=== PATIENT | female | born 1970 | race Caucasian/White ===

== ENCOUNTER 2019-07-14 09:41 | Day surgery (SDC) | payer OTHER, SELFPAY ==
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
[2019-07-14] VITALS (7 sets, daily range): BP systolic 126–149; BP diastolic 57–72; PULSE 78–87; RESP 16–18; TEMP 36.8–37; O2SAT 92–96; BMI 49.0
--- NOTE | 2019-07-14 | EMB_PTH ---
PATIENT: SHANNAN SOLIS LOC: [facility] – [place] U#:[id number] AGE/SX: 48/F ROOM: RE07/14/[address]: Dr. Jennifer Conde MD : [id number] BED: DIS: 07/14/2019 SPEC #: [id number] RECD: 07/14/19 15:50 STATUS: JODIE ADAMS #: [id number] ALLI: 07/14/19 00:[address]: Jennifer Conde DEPT: SURGICAL PATHOLOGY RECD BY: Mic Braden ENTERED: 07/15/19 08:53 SP TYPE: ENDOM BX/C GENIA DR: Dr. Isaiah Espinoza MD Tissues: Endometrium, NOS Procedures: Surgery Specimen Level IV HEADER OPERATION: Hysteroscopy, dilation and curettage PRE-OP DIAGNOSIS: Postmenopausal bleeding, stenotic cervix and thickened endometrium on US TISSUE SUBMITTED: Endometrial curettings and polyp MICROSCOPIC DIAGNOSIS Endometrium curettings and polyp, excisions: Strips of benign superficial glandular mucosa and squamous mucosa. Endometrial polyp with simple hyperplasia without atypia. AM:bharat 07/18/19 MICROSCOPIC DESCRIPTION Slides are reviewed. GROSS DESCRIPTION Received is one container labeled with the patient name and designated endometrial curettings and polyp. The specimen consists of multiple fragments of hemorrhagic soft tissue mixed with mucoid tissue that in aggregate measure 2.5 x 1.5 x 0.1 cm. Also present in the container is a piece of hansen pink polyp measuring 3.2 x 1 x 0.7 cm. The entire specimen is submitted in two cassettes as follows: 1 - hemorrhagic soft tissue. 2- Polyp. /SJ:sp 07/15/19 TC: 1 CPT: 01370
[2019-07-14 10:13] LABS: Internal QC Validated? YES +Cl - CLEAR BKGD; Pregnancy, Urine Negative Negative
[2019-07-14] MEDS: Acetaminophen 500 MG Tablet 1000 MG PO (10:35)
[2019-07-14] MEDS: Lactated Ringers 1,000 ML 70 ML IV (10:36)
[2019-07-14] MEDS: Ketorolac 30 MG/ML Syringe IV (10:36)
[2019-07-14] MEDS: Lubricating Jelly 60 GM Tube 30 GM TOPICAL (12:19)
--- NOTE | 2019-07-14 13:05 | OP.PCM_ITS ---
Report of Operation Date of Procedure: 07/14/19 Pre-Operative Diagnosis: PMB, thickened endometrium, stenotic cervix Post-Operative Diagnosis: same+ endometrial polyp Surgery/Procedure Performed:: Hysteroscopy dilation and curettage with polyp removal Description of Surgical Findings:: Normal-appearing cervix and vagina, normal-appearing endometrial cavity except for large fundal pedunculated polyp. linoleum floor installer: None Type of Anesthesia:: MAC Anesthesiologist: Breanna Trotter Special Medications: None Specimen's removed: Endometrial polyp and curettings Drains: None Estimated Blood Loss (mL): 10 Fluids Replaced: 600 Description of Procedure: The patient was taken to the OR where she was prepped and draped in dorsal lithotomy position. The weighted speculum was placed in the vagina and the anterior lip of the cervix was grasped with a single-tooth tenaculum. The cervix was dilated serially with Hegar dilators. The 5mm hysteroscope was placed into the uterine cavity and the above findings were noted. Bilateral tubal ostia were identified. A large fundal polyp was noted and was very pedunculated. The decision was made to attempt to remove it with just sharp curettage. The hysteroscope was removed. A gentle sharp curettage was done of the uterine cavity. Polyp came out and one large piece. There were scant endometrial curettings to go along with it. The hysteroscope was replaced and the polyp had been removed in its entirety and there were no other focal abnormalities. The instruments were removed from the vagina. The specimen was handed off and sent to pathology. All sponge and needle counts were correct. Vaginal sweep was performed by me. The patient was awakened and taken to the recovery room in stable condition. Hysteroscopic ins: 300cc normal saline Hysteroscopic outs:280cc Findings: Endometrial cavity: Atrophic, thin lining, large pedunculated fundal polyp Cervix: Normal Vagina: Normal Grafts/Implants Used: none - Complications none - Admit VTE Documentation VTE Present on Admission: No VTE Mechan Device Prophylaxis: SCD's VTE Pharm Prophylaxis ordered?: No Reason prophylaxis not ordered:: Treatment Not Indicated
--- NOTE | 2019-07-14 13:09 | DCINST_ITS ---
Discharge Diet: No Restrictions Discharge Activity: Return to Normal Activity, May Shower, May Take a Tub Bath - in 2 weeks. May resume sexual activity in: 1 week Call your doctor if your incision/area has: Sudden Increased Bleeding, Foul Smelling Discharge Call your doctor if you observe: Fever of 101 or Higher, Using more than one pad per hour - for 2 hrs in a row Allergies/Adverse Reactions: Allergies nitrofurantoin [From Macrobid] Allergy (Verified 07/14/19 10:17) PAINFUL WELTS Sulfa (Sulfonamide Antibiotics) Allergy (Verified 07/14/19 10:17) Hives Medications to take at Discharge Albuterol Aerosols [Ventolin Aerosols] 2.5 mg INHALATION Q6HWA.RT PRN 07/07/19 Albuterol IH (ProAir) [Proair Hfa] 1 - 2 puff INHALATION Q6H PRN PRN 07/07/19 Calcium Carb/Vitamin D3/Vit K1 [Viactiv 650 mg-12.5 Mcg Chew] 1 ea PO DAILY 07/07/19 Carbamazepine [Tegretol] 200 mg PO QHS 07/07/19 Cholecalciferol (Vitamin D3) [Vitamin D3] 6,000 unit PO DAILY 07/07/19 Enalapril/Hydrochlorothiazide [Enalapril-Hctz 5-12.5 mg Tab] 1 ea PO QHS 07/07/19 Fenofibrate [Tricor] 145 mg PO QHS 07/07/19 Inulin/Chromium Picolinate [Fiber Gummies] 1 ea PO DAILY 07/07/19 Loratadine [Claritin] 10 mg PO QHS 07/07/19 Mometasone Furoate [Elocon] 15 gm TP PRN PRN 07/07/19 Montelukast [Singulair] 10 mg PO DAILY 07/07/19 Mv-Mn/Folic Acid/Vit [id number] [Alive Once Daily Women 50 Plus] 1 ea PO DAILY 07/07/19 Nortriptyline HCl [Pamelor] 50 mg PO QODAY 07/07/19 Omeprazole 40 mg PO DAILY 07/07/19 Ropinirole HCl [Requip] 0.25 mg PO QHS 07/07/19 Sertraline HCl [Zoloft] 200 mg PO QHS 07/07/19 Sumatriptan Succinate [Imitrex] 100 mg PO .X1 PRN 07/07/19 hydroCHLOROthiazide [Hydrochlorothiazide] 12.5 mg PO DAILY 07/07/19 Primary Care Physician: Isaiah Espinoza MD [Primary Care Provider] - Test Results: Test results from this visit will be discussed in further detail at your follow- up appointment, if applicable. Please Follow Up With: Jennifer Conde MD - [phone] When: as needed, we will call with pathology
== END 2019-07-14 14:35 | disposition home or self-care (01) ==
LOC: SDC 09:46 → AC 09:47
PROVIDERS: Anesthesiology; Family Provider Internal Medicine; PCP Internal Medicine; Referring Provider Obstetrics & Gynecology; Visit Provider Obstetrics & Gynecology
PROC: 0UDB8ZZ Extraction of Endometrium, Via Natural or Artificial Opening Endoscopic (ICD-10-PCS; CPT 58558; principal; 2019-07-14 11:00)
DX: N85.01 Benign endometrial hyperplasia (principal); N95.0 Postmenopausal bleeding; R93.89 Abnormal findings on diagnostic imaging of other specified body structures; I10 Essential (primary) hypertension; E78.5 Hyperlipidemia, unspecified; G25.81 Restless legs syndrome; G43.909 Migraine, unspecified, not intractable, without status migrainosus; J30.9 Allergic rhinitis, unspecified; K21.9 Gastro-esophageal reflux disease without esophagitis; G47.33 Obstructive sleep apnea (adult) (pediatric); F32.9 Major depressive disorder, single episode, unspecified; F41.9 Anxiety disorder, unspecified; Z78.0 Asymptomatic menopausal state; Z79.899 Other long term (current) drug therapy; Z88.2 Allergy status to sulfonamides; Z88.1 Allergy status to other antibiotic agents; Z86.2 Personal history of diseases of the blood and blood-forming organs and certain disorders involving the immune mechanism; Z87.891 Personal history of nicotine dependence
CPT/HCPCS: 00952; 58558; 81025; 88305; J7120; J2405